=== PATIENT | female | born 1950 | race Caucasian/White ===

== ENCOUNTER 2024-10-17 08:31 | Inpatient (IN) | payer MEDICARE, OTHER ==
[~2024-10-17] VITALS: Ht 165.1 cm; Wt 60.3 kg
[2024-10-17] MEDS ORDERED: LIDOCAINE 2%-EPI 1:200,000 20 ML VIAL IJ ONE (11:49)
[2024-10-17] MEDS ORDERED: dexaMETHasone SOD PHOSPHATE 1 ML ONE (11:49)
[2024-10-17] MEDS ORDERED: OXYMETAZOLINE HCL NASAL SPRAY 30 ML BOTTLE NS ONE (11:49)
[2024-10-17] MEDS ORDERED: VANCOMYCIN 1 GM VIAL ONE (11:49)
[2024-10-17] MEDS ORDERED: PANT40TA2 PO (15:19)
[2024-10-17] MEDS ORDERED: METF-442 PO (15:19)
[2024-10-17] MEDS ORDERED: CLON0.5T PO (15:19)
[2024-10-17] MEDS ORDERED: ASPI-1169 PO (15:19)
[2024-10-17] MEDS ORDERED: CARV25TA PO (15:19)
[2024-10-17] MEDS ORDERED: CHOL200059 PO (15:19)
[2024-10-17] MEDS ORDERED: GLIM4TAB37 PO (15:19)
[2024-10-17] MEDS ORDERED: ESCI10TA PO (15:19)
[2024-10-17] MEDS ORDERED: ICOS1CAP PO (15:19)
[2024-10-17] MEDS ORDERED: ZOLP10TA2 PO (15:19)
[2024-10-17] MEDS ORDERED: ROSU10TA2 PO (15:19)
[2024-10-17] MEDS ORDERED: PREG75CA PO (15:19)
[2024-10-17] MEDS ORDERED: INSU100I26 SQ (15:19)
[2024-10-17] MEDS ORDERED: HYDROMORPHONE 1 MG/1 ML DISP.SYRIN IV PRN (15:30)
[2024-10-17] MEDS ORDERED: ONDANSETRON HCL/PF 4 MG/2 ML VIAL IVP PRN (15:30)
[2024-10-17] MEDS ORDERED: ACETAMINOPHEN 325 MG TABLET PO PRN (15:30)
[2024-10-17] MEDS: IV NS 0.9% 1,000 ML IV PRN (15:37)
[2024-10-17] MEDS ORDERED: DEXTROSE 50%-WATER 50 ML DISP.SYRIN IV PRN (16:00)
[2024-10-17] MEDS: INSULIN REGULAR, HUMAN 100 UNIT/ML 3 ML VIAL SQ PRN (16:53)
[2024-10-17] MEDS: BLOOD SUGAR DIAGNOSTIC 1 EACH STRIP IN SCH (16:59)
[2024-10-17] MEDS: *INSULIN REGULAR(HUMULIN R)HUM 100 UNIT/ML VIAL SQ PRN (20:45)
[2024-10-17] MEDS ORDERED: INSULIN LISPRO/ASPART 100 UNIT/ML CARTRIDGE SQ ONE ×2 (21:00→21:27)
[2024-10-17] MEDS: INSULIN REGULAR, HUMAN 100 UNIT/ML 10 ML VIAL SQ ONE (21:37)
[2024-10-17] MEDS: INSULIN LISPRO/ASPART 100 UNIT/ML CARTRIDGE SQ ONE (21:37)
[2024-10-17 22:57] VITALS: BP 149/64; TEMP 98.3; O2SAT 100
[2024-10-17] MEDS: VANCOMYCIN 1 GM in IV D5W 250ml IV SCH (23:15)
[2024-10-18 08:00] VITALS: BP 164/76; TEMP 99; O2SAT 100
[2024-10-18] MEDS: ASPIRIN 81 MG TAB.CHEW PO SCH (09:00)
[2024-10-18] MEDS: METFORMIN 500 MG TABLET PO SCH (09:00)
[2024-10-18] MEDS: ESCITALOPRAM OXALATE (10 MG) 10 MG TABLET PO SCH (09:00)
[2024-10-18] MEDS: ATORVASTATIN 10 MG TABLET PO SCH (09:00)
[2024-10-18] MEDS: ZOLPIDEM TARTRATE 10 MG TABLET PO SCH (09:00)
[2024-10-18] MEDS ORDERED: Medication Not On Formulary EA (Icosapent Ethyl (Vascepa) 1 GM) PO SCH (09:00)
[2024-10-18] MEDS: clonazePAM 0.5 MG TABLET PO SCH (09:00)
[2024-10-18] MEDS: PREGABALIN 25 MG CAPSULE PO SCH (09:00)
[2024-10-18] MEDS: GLIMEPIRIDE 4 MG TABLET PO SCH (09:00)
[2024-10-18] MEDS: CHOLECALCIFEROL 1,000 UNIT TABLET (VIT D3) PO SCH (09:00)
[2024-10-18] MEDS: PANTOPRAZOLE 40 MG TABLET.DR PO SCH (09:00)
[2024-10-18 09:09] VITALS: BP 164/76
[2024-10-18] MEDS: CARVEDILOL 12.5 MG TABLET PO SCH (09:09)
== END 2024-10-18 10:30 | disposition home or self-care (01) | DRG 142 ==
LOC: DS 08:31 → MED 14:45
PROVIDERS: ADMIT Internal Medicine; ATTEND Internal Medicine
PROC: 0N5R0ZZ Destruction of Maxilla, Open Approach (ICD-10-PCS; principal; 2024-10-17)
PROC: 0NSR04Z Reposition Maxilla with Internal Fixation Device, Open Approach (ICD-10-PCS; 2024-10-17)
PROC: 0NUR07Z Supplement Maxilla with Autologous Tissue Substitute, Open Approach (ICD-10-PCS; 2024-10-17)
DX: S02.40DA Maxillary fracture, left side, initial encounter for closed fracture (principal); E11.9 Type 2 diabetes mellitus without complications; S02.40CA Maxillary fracture, right side, initial encounter for closed fracture; S02.609A Fracture of mandible, unspecified, initial encounter for closed fracture; E78.5 Hyperlipidemia, unspecified; I10 Essential (primary) hypertension; Z79.4 Long term (current) use of insulin; Z79.84 Long term (current) use of oral hypoglycemic drugs; Z79.01 Long term (current) use of anticoagulants; Z79.899 Other long term (current) drug therapy; Z88.0 Allergy status to penicillin; X58.XXXA Exposure to other specified factors, initial encounter; Y92.9 Unspecified place or not applicable; E11.69 Type 2 diabetes mellitus with other specified complication; M27.2 Inflammatory conditions of jaws
CPT/HCPCS: 82962-TC; A4223; A4338; C1713; G0378; J0461; J0690; J1100; J1815; J2704; J3370; J3490; J7030; J7060

== ENCOUNTER 2025-02-13 08:33 | Inpatient (IN) | payer MEDICARE, OTHER ==
[~2025-02-13] VITALS: Ht 144.8 cm; Wt 68.0 kg
[~2025-02-13 08:33] MED LIST: ASPI-1169 PO; CARV25TA PO; CHOL200059 PO; CLON0.5T PO; ESCI10TA PO; GLIM4TAB37 PO; ICOS1CAP PO; INSU100I26 SQ; METF-442 PO; PANT40TA2 PO; PREG75CA PO; ROSU10TA2 PO; ZOLP10TA2 PO
[2025-02-13] MEDS ORDERED: VANCOMYCIN 1 GM VIAL ONE (09:58)
[2025-02-13] MEDS ORDERED: LIDOCAINE 2%-EPI 1:100,000 30 ML VIAL ONE (09:58)
[2025-02-13] MEDS ORDERED: dexaMETHasone SOD PHOSPHATE 2 ML ONE (09:58)
[2025-02-13] MEDS ORDERED: SEVOFLURANE 250 ML BOTTLE IH ONE (10:14)
[2025-02-13] MEDS ORDERED: LABETALOL HCL IV 100MG VIAL ONE (10:14)
[2025-02-13 12:00] VITALS: BP 128/61; TEMP 98.1; O2SAT 98
[2025-02-13] MEDS ORDERED: HYDROMORPHONE 1 MG/1 ML DISP.SYRIN IV PRN (12:30)
[2025-02-13] MEDS ORDERED: ONDANSETRON HCL/PF 4 MG/2 ML VIAL IVP PRN ×2 (12:30→13:30)
[2025-02-13] MEDS: IV NS 0.9% 1,000 ML IV PRN (12:34)
[2025-02-13] MEDS ORDERED: ACETAMINOPHEN 325 MG TABLET PO PRN (13:30)
[2025-02-13] MEDS ORDERED: HYDROCODONE/APAP 10/325MG TABLET PO PRN (13:30)
[2025-02-13] MEDS ORDERED: Z GUARD REMEDY 4 OZ OINT TP PRN (13:30)
[2025-02-13] MEDS ORDERED: MAGNESIUM HYDROXIDE 30 ML UDC PO PRN (13:30)
[2025-02-13] MEDS ORDERED: MAG HYDROX/AL HYDROX/SIMETH 30 ML UDC PO PRN (13:30)
[2025-02-13] MEDS ORDERED: DEXTROSE 50%-WATER 50 ML DISP.SYRIN IV PRN (14:00)
[2025-02-13 16:11] VITALS: BP 169/75; TEMP 98.1; O2SAT 95
[2025-02-13] MEDS: BLOOD SUGAR DIAGNOSTIC 1 EACH STRIP IN SCH (16:46)
[2025-02-13] MEDS: INSULIN REGULAR, HUMAN 100 UNIT/ML 3 ML VIAL SQ PRN (16:50)
[2025-02-13] MEDS: CARVEDILOL 12.5 MG TABLET PO SCH (16:54)
[2025-02-13] MEDS: GLIMEPIRIDE 4 MG TABLET PO SCH (16:59)
[2025-02-13] MEDS ORDERED: METFORMIN 500 MG TABLET PO SCH (17:00)
[2025-02-13] MEDS ORDERED: Medication Not On Formulary EA (Icosapent Ethyl (Vascepa) 1 GM) PO SCH (17:00)
[2025-02-13 20:00] VITALS: BP 155/69; TEMP 98.4; O2SAT 96
[2025-02-13] MEDS: VANCOMYCIN 1 GM in IV D5W 250ml IV SCH (20:26)
[2025-02-13] MEDS: ACETAMINOPHEN 325 MG TABLET PO PRN (20:28)
[2025-02-13 21:27] VITALS: TEMP 98.4
[2025-02-13] MEDS: ZOLPIDEM TARTRATE 10 MG TABLET PO SCH (21:33)
[2025-02-14 06:58] LABS: BASOPHILS % (AUTO) 0.1 % (0.0-2.0); HEMATOCRIT 31 % (33-45); HEMOGLOBIN 10.5 g/dL (11.5-14.8); LYMPHOCYTES # (AUTO) 0.9 K/uL (0.8-4.8); LYMPHOCYTES % (AUTO) 12.8 % (20.0-44.0); MEAN CORPUSCULAR HEMOGLOBIN 27 PG (26.0-33.0); MEAN CORPUSCULAR HGB CONC 33 g/dl (31.0-36.0); MEAN CORPUSCULAR VOLUME 82 fL (82-100); MONOCYTES # (AUTO) 0.4 K/uL (0.1-1.30); MONOCYTES % (AUTO) 5.9 % (2.0-12.0); NEUTROPHILS # (AUTO) 5.8 K/uL (1.8-8.9); NEUTROPHILS % (AUTO) 81.2 % (43.0-81.0); PLATELET COUNT (AUTO) 199 K/uL (150-450); RED BLOOD CELL COUNT(AUTO) 3.81 MIL/uL (4.0-5.2); RED CELL DISTRIBUTION WIDTH 14.6 % (11.5-15.0); WHITE BLOOD COUNT (AUTO) 7.1 K/uL (4.3-11.0)
[2025-02-14 07:38] LABS: CALCIUM, SERUM 9.1 mg/dL (8.5-10.1); CREATININE 1.1 mg/dL (0.6-1.3); POTASSIUM 4.2 mmol/L (3.5-5.1)
[2025-02-14] MEDS: CHOLECALCIFEROL 1,000 UNIT TABLET (VIT D3) PO SCH (08:17)
[2025-02-14] MEDS: PANTOPRAZOLE 40 MG TABLET.DR PO SCH (08:17)
[2025-02-14] MEDS: ASPIRIN 81 MG TAB.CHEW PO SCH (08:17)
[2025-02-14] MEDS: PREGABALIN 25 MG CAPSULE PO SCH (08:17)
[2025-02-14] MEDS: ATORVASTATIN 40 MG TABLET PO SCH (08:17)
[2025-02-14] MEDS: ESCITALOPRAM OXALATE (10 MG) 10 MG TABLET PO SCH (08:17)
[2025-02-14 08:18] VITALS: BP 154/62
[2025-02-14] MEDS: clonazePAM 0.5 MG TABLET PO SCH (08:20)
== END 2025-02-14 14:54 | disposition home or self-care (01) | DRG 496 ==
LOC: DS 08:33 → MED 09:00
PROVIDERS: ADMIT Nurse Practitioner Acute Care; ATTEND Nurse Practitioner Acute Care
PROC: 0N5R0ZZ Destruction of Maxilla, Open Approach (ICD-10-PCS; 2025-02-13)
PROC: 0NSL0ZZ Reposition Left Palatine Bone, Open Approach (ICD-10-PCS; 2025-02-13)
PROC: 0WB30ZX Excision of Oral Cavity and Throat, Open Approach, Diagnostic (ICD-10-PCS; 2025-02-13)
PROC: 0NUL07Z Supplement Left Palatine Bone with Autologous Tissue Substitute, Open Approach (ICD-10-PCS; 2025-02-13)
PROC: 0NPW04Z Removal of Internal Fixation Device from Facial Bone, Open Approach (ICD-10-PCS; principal; 2025-02-13 10:00)
DX: T84.69XA Infection and inflammatory reaction due to internal fixation device of other site, initial encounter (principal); M86.8X8 Other osteomyelitis, other site; Y83.8 Other surgical procedures as the cause of abnormal reaction of the patient, or of later complication, without mention of misadventure at the time of the procedure; Y92.009 Unspecified place in unspecified non-institutional (private) residence as the place of occurrence of the external cause; Z68.32 Body mass index [BMI] 32.0-32.9, adult; I10 Essential (primary) hypertension; E78.5 Hyperlipidemia, unspecified; E66.9 Obesity, unspecified; E11.9 Type 2 diabetes mellitus without complications; Z88.0 Allergy status to penicillin; Z79.4 Long term (current) use of insulin; Z79.84 Long term (current) use of oral hypoglycemic drugs; Z79.899 Other long term (current) drug therapy; E11.69 Type 2 diabetes mellitus with other specified complication; D16.4 Benign neoplasm of bones of skull and face; M27.2 Inflammatory conditions of jaws; J32.9 Chronic sinusitis, unspecified; J34.1 Cyst and mucocele of nose and nasal sinus
CPT/HCPCS: 36415; 80048-TC; 82962-TC; 85025-TC; 87102-TC; 88300-TC; 88305-TC; 88311-TC; 88312-TC; A4223; A4338; G0378; J0461; J0690; J1100; J1815; J2704; J3370; J3490; J7030; J7060